=== PATIENT | female | born 1965 | race American Indian/Alaskan Native ===

== ENCOUNTER 2017-09-11 02:23 | Emergency (ER) | payer MEDICAID ==
[2017-09-11] MEDS ORDERED: DELTASONE PO ONE (03:25)
[2017-09-11] MEDS ORDERED: REGLAN PO ONE (03:25)
[2017-09-11] MEDS ORDERED: BENADRYL PO ONE (03:25)
[2017-09-11 03:31] VITALS: BP 144/96
[2017-09-11] MEDS: KEFLEX PO ONE ×2 (03:35→04:20)
[2017-09-11] MEDS ORDERED: KEFLEX ONE (03:37)
--- NOTE | 2017-09-11 03:39 | Emergency Department Report ---
ED General Adult HPI - General Chief complaint: Extremity Problem,Nontraumatic Stated complaint: LEFT LEG ANIMAL BITE Time Seen by Provider: 09/11/17 03:19 Source: patient Mode of arrival: Ambulatory Limitations: No Limitations - History of Present Illness Initial comments: Patient's 51-year-old female history of hypertension diabetes state spider bite 2 days ago or initial lesion to her right lower extremity states rash erupted today after rest described as red smooth raise pruritus no fever no chills no shortness of breath . Serous drainage from primary insect bite Onset/Timin -: days(s) Location: lower extremity Radiation: non-radiation Severity scale (0 -10): 3 Quality: burning, constant, other (itching ) Consistency: constant Improves with: other (benadryl ) Worsens with: none, other (itch scratch cycle ) Associated Symptoms: rash. denies: confusion, chest pain, cough, diaphoresis, fever/chills, headaches, loss of appetite, malaise, nausea/vomiting, seizure, shortness of breath, syncope, weakness Treatments Prior to Arrival: none - Related Data Home Medications Medication Instructions Recorded Confirmed Last Taken Aspirin [Aspirin BABY CHEW TAB] 81 mg PO DAILY 07/10/15 07/10/15 07/10/15 Hydrochlorothiazide [HCTZ] 25 mg PO QDAY 07/10/15 07/10/15 07/10/15 Losartan [Cozaar] 50 mg PO QDAY 07/10/15 07/10/15 07/10/15 metFORMIN [Glucophage] 500 mg PO BID 07/10/15 07/10/15 07/10/15 Previous Rx's Medication Instructions Recorded Last Taken Type HYDROcodone/APAP 5-325 [Hemlock 1 - 2 each PO Q6HR PRN #20 tablet 07/10/15 Unknown Rx 5/325] Ibuprofen [Motrin 800 MG tab] 800 mg PO Q8HR PRN #20 tablet 07/10/15 Unknown Rx Valacyclovir HCl [Valtrex] 1,000 mg PO TID #42 tablet 07/10/15 Unknown Rx Cyclobenzaprine [Flexeril] 10 mg PO TID PRN #21 tablet 09/11/17 Unknown Rx Metoclopramide [Reglan] 10 mg PO TID #21 tab 09/11/17 Unknown Rx Triamcinolone Aceton 0.1% (Nf) 1 applic TP BID #1 tube 09/11/17 Unknown Rx [Kenalog (NF)] diphenhydrAMINE [Benadryl CAP] 25 mg PO Q8HR PRN #30 capsule 09/11/17 Unknown Rx predniSONE [Deltasone] 40 mg PO QDAY #10 tab 09/11/17 Unknown Rx Allergies Allergy/AdvReac Type Severity Reaction Status Date / Time No Known Allergies Allergy Unverified 11/05/13 11:52 ED Review of Systems ROS: Stated complaint: LEFT LEG ANIMAL BITE Other details as noted in HPI ED Past Medical Hx - Past Medical History Previous Medical History?: Yes Hx Hypertension: Yes Hx Diabetes: Yes Hx Asthma: Yes - Surgical History Past Surgical History?: Yes Additional Surgical History: ectopic , right knee. C-Sec x 2 - Social History Smoking Status: Current Every Day Smoker Substance Use Type: Alcohol, Cocaine, Marijuana - Medications Home Medications: Home Medications Medication Instructions Recorded Confirmed Last Taken Type Aspirin [Aspirin BABY CHEW TAB] 81 mg PO DAILY 07/10/15 07/10/15 07/10/15 History HYDROcodone/APAP 5-325 [Hemlock 1 - 2 each PO Q6HR PRN #20 tablet 07/10/15 Unknown Rx 5/325] Hydrochlorothiazide [HCTZ] 25 mg PO QDAY 07/10/15 07/10/15 07/10/15 History Ibuprofen [Motrin 800 MG tab] 800 mg PO Q8HR PRN #20 tablet 07/10/15 Unknown Rx Losartan [Cozaar] 50 mg PO QDAY 07/10/15 07/10/15 07/10/15 History Valacyclovir HCl [Valtrex] 1,000 mg PO TID #42 tablet 07/10/15 Unknown Rx metFORMIN [Glucophage] 500 mg PO BID 07/10/15 07/10/15 07/10/15 History Cyclobenzaprine [Flexeril] 10 mg PO TID PRN #21 tablet 09/11/17 Unknown Rx Metoclopramide [Reglan] 10 mg PO TID #21 tab 09/11/17 Unknown Rx Triamcinolone Aceton 0.1% (Nf) 1 applic TP BID #1 tube 09/11/17 Unknown Rx [Kenalog (NF)] diphenhydrAMINE [Benadryl CAP] 25 mg PO Q8HR PRN #30 capsule 09/11/17 Unknown Rx predniSONE [Deltasone] 40 mg PO QDAY #10 tab 09/11/17 Unknown Rx ED Physical Exam - General Limitations: No Limitations General appearance: alert, in no apparent distress - Head Head exam: Present: atraumatic, normocephalic - Eye Eye exam: Present: normal appearance, PERRL, EOMI Pupils: Present: normal accommodation - ENT ENT exam: Present: normal orophraynx, mucous membranes dry, mucous membranes moist, TM's normal bilaterally, normal external ear exam - Neck Neck exam: Present: normal inspection, full ROM, lymphadenopathy. Absent: thyromegaly - Respiratory Respiratory exam: Present: normal lung sounds bilaterally. Absent: respiratory distress, wheezes, stridor, chest wall tenderness - Cardiovascular Cardiovascular Exam: Present: regular rate, normal rhythm, normal heart sounds. Absent: systolic murmur, diastolic murmur, rubs, gallop - GI/Abdominal GI/Abdominal exam: Present: soft, normal bowel sounds. Absent: distended, tenderness, guarding, rebound, rigid, organomegaly, mass, bruit, pulsatile mass , hernia - Rectal Rectal exam: Present: deferred - Extremities Exam Extremities exam: Present: normal inspection, full ROM, normal capillary refill. Absent: tenderness, pedal edema, joint swelling, calf tenderness - Back Exam Back exam: Present: normal inspection, full ROM. Absent: tenderness, CVA tenderness (R), CVA tenderness (L), muscle spasm, paraspinal tenderness, vertebral tenderness - Neurological Exam Neurological exam: Present: alert, oriented X3, CN II-XII intact. Absent: normal gait, reflexes normal - Psychiatric Psychiatric exam: Present: normal affect, normal mood - Skin Skin exam: Present: warm, dry, intact, normal color, rash, urticaria, vesicles ED Course Vital Signs 09/11/17 03:00 Temperature 98.2 F Pulse Rate 99 H Respiratory 20 Rate Blood Pressure 144/96 [Left] O2 Sat by Pulse 99 Oximetry ED Medical Decision Making - Medical Decision Making Is moderate allergic versus contact dermatitis symptoms are improved with Benadryl and steroids given in ED there is no shortness of breath no wheezing no cough and no fever no RESPIRATORY distress plan DC to home in stable condition, T Benadryl Reglan prednisone patient will follow up in [facility] in 2-3 days return to ED if symptoms get worse, patient verbalizes agreement and understanding of same will be DC'd to home in stable condition at this time Critical care attestation.: If time is entered above; I have spent that time in minutes in the direct care of this critically ill patient, excluding procedure time. ED Disposition Clinical Impression: Allergic dermatitis Disposition: DC-01 TO HOME OR SELFCARE Is pt being admited?: No Does the pt Need Aspirin: No Condition: Good Instructions: Allergic Rhinitis (ED) Prescriptions: Cyclobenzaprine [Flexeril] 10 mg PO TID PRN #21 tablet PRN Reason: Muscle Spasm diphenhydrAMINE [Benadryl CAP] 25 mg PO Q8HR PRN #30 capsule PRN Reason: allergies Metoclopramide [Reglan] 10 mg PO TID #21 tab predniSONE [Deltasone] 40 mg PO QDAY #10 tab Triamcinolone Aceton 0.1% (Nf) [Kenalog (NF)] 1 applic TP BID #1 tube Referrals: PRIMARY CARE,MD [Primary Care Provider] - 3-5 Days Forms: Work/School Release Form(ED) Time of Disposition: 04:37
[2017-09-11] MEDS ORDERED: KEFLEX PO ONE (04:00)
== END 2017-09-11 04:40 | disposition home or self-care (01) ==
LOC: ED 02:23
DX: L23.89 Allergic contact dermatitis due to other agents (principal); I10 Essential (primary) hypertension; E11.9 Type 2 diabetes mellitus without complications; J45.909 Unspecified asthma, uncomplicated; F17.200 Nicotine dependence, unspecified, uncomplicated; Z79.82 Long term (current) use of aspirin
CPT/HCPCS: 99282; J7512